=== PATIENT | female | born 1955 | race Caucasian/White ===

== ENCOUNTER 2019-01-31 13:13 | Day surgery (SDC) | payer MEDICARE, BC ==
[2019-01-31] MEDS ORDERED: PROPOFOL 10 MG/ML VIAL IV ONE (13:14)
[2019-01-31] MEDS ORDERED: LIDOCAINE 2% MDV (20MG/ML) 20ML VIAL IV ONE (13:14)
--- NOTE | 2019-02-01 07:51 | Operative Note ---
DATE OF SURGERY: 01/31/2019 OPERATION: COLONOSCOPY with cold snare polypectomy x5. PREOPERATIVE DIAGNOSIS: Personal history of colon polyps. POSTOPERATIVE DIAGNOSIS: Multiple colon polyps x5 and internal hemorrhoids. PROCEDURE: After informed consent was obtained from the patient, she was placed in the left lateral decubitus position in the endoscopy suite, sedated and monitored by the department of anesthesia. Digital rectal exam was unremarkable. A well-lubricated [id number] colonoscope was inserted into the rectum and advanced to the cecum. Preparation quality was good. The cecum, cecal bulb, ileocecal valve, and appendiceal orifice were unremarkable. In the ascending colon there were two 5-6 mm sessile polyps which were removed with a cold snare. In the transverse colon there were in fact 3 sessile polyps which ranged in size from 5-6 mm and each removed with a cold snare. All the polyps were retrieved without incident. The remainder of the ascending colon, transverse colon, descending colon, and sigmoid colon were unremarkable. J-turn views of the anorectum revealed internal hemorrhoids. Forward views of the rectum were unremarkable. The endoscope was straightened, the rectal ampulla deflated, and the endoscope was removed. RECOMMENDATIONS: The patient should resume her medications and diet. Recommend repeat colonoscopy in 3-5 years pending tissue histology. As always, thank you for allowing me to participate in the healthcare of your patients. CC: ERICKA JAIME D.O. ESTER
== END 2019-01-31 15:00 | disposition home or self-care (01) ==
LOC: HOP 13:13
PROVIDERS: ATTEND Internal Medicine Gastroenterology
DX: Z12.11 Encounter for screening for malignant neoplasm of colon (principal); Z86.010 Personal history of colon polyps; D12.2 Benign neoplasm of ascending colon; D12.3 Benign neoplasm of transverse colon; I10 Essential (primary) hypertension